=== PATIENT | female | born 1960 | race Caucasian/White ===

== ENCOUNTER 2016-10-11 18:05 | Emergency (ER) | payer MEDICARE, OTHER | END 2016-10-11 19:00 | disposition home or self-care (01) | LOC: ER1 18:05 | DX: S05.02XA Injury of conjunctiva and corneal abrasion without foreign body, left eye, initial encounter (principal); I10 Essential (primary) hypertension; M54.9 Dorsalgia, unspecified; G89.29 Other chronic pain; Z88.0 Allergy status to penicillin; X58.XXXA Exposure to other specified factors, initial encounter | CPT/HCPCS: 99283 ==

== ENCOUNTER 2021-10-12 09:23 | Emergency (ER) | payer MEDICARE, OTHER ==
[~2021-10-12 09:23] MED LIST: FOSAMAX70 MG PO; NEURONTIN 400400 MG PO; NEXIUM40 MG PO; NORCO 5-325 TA1 EACH PO; OXYCONTIN20 MG PO; TENORMIN 50 MG50 MG PO; TRAZODONE HCL100 MG PO; ZANTAC150 MG PO; ZESTRIL40 MG PO
== END 2021-10-12 13:42 | disposition home or self-care (01) ==
LOC: ER1 09:23
DX: S32.019A Unspecified fracture of first lumbar vertebra, initial encounter for closed fracture (principal); I10 Essential (primary) hypertension; Z88.0 Allergy status to penicillin; Z86.73 Personal history of transient ischemic attack (TIA), and cerebral infarction without residual deficits; X50.0XXA Overexertion from strenuous movement or load, initial encounter
CPT/HCPCS: 72131; 96372; 99283; J1100; J1885; J2270